=== PATIENT | male | born 1980 ===

== ENCOUNTER → 2017-06-12 | Outpatient (CLI) | payer SELFPAY ==
--- NOTE | 2017-06-12 10:04 | RAD ---
Pelvis with left hip, 3 views, 06/12/2017: History: Hip pain No fracture or destructive bony lesion is seen. The hip joint spaces are fairly well preserved. The soft tissues are unremarkable. IMPRESSION: No acute pelvic or left hip abnormality is detected.
== END | disposition home or self-care (01) ==
LOC: DXRADRC 08:46
PROVIDERS: ATTEND Orthopaedic Surgery Sports Medicine
DX: M25.552 Pain in left hip (principal)
CPT/HCPCS: 73502